=== PATIENT | male | born 1985 | race Caucasian/White ===

== ENCOUNTER 2017-12-11 21:05 | Emergency (ER) | payer OTHER ==
[~2017-12-11] VITALS: Ht 180.3 cm; Wt 108.9 kg
[2017-12-11 21:09] VITALS: BP 129/85
[2017-12-11] MEDS ORDERED: IBUPROFEN 800 MG TAB PO ONE (22:00)
[2017-12-11 22:44] VITALS: BP 129/85
== END 2017-12-11 22:44 | disposition home or self-care (01) ==
LOC: MED 21:05
DX: S20.20XA Contusion of thorax, unspecified, initial encounter (principal); S05.12XA Contusion of eyeball and orbital tissues, left eye, initial encounter; V13.4XXA Pedal cycle driver injured in collision with car, pick-up truck or van in traffic accident, initial encounter; Y93.89 Activity, other specified; Y92.410 Unspecified street and highway as the place of occurrence of the external cause; Y99.8 Other external cause status
CPT/HCPCS: 71101; 99284

== ENCOUNTER 2023-06-21 01:35 | Emergency (ER) | payer OTHER ==
[~2023-06-21] VITALS: Ht 180.3 cm; Wt 99.8 kg
[2023-06-21 01:40] VITALS: BP 123/66; PULSE 71; RESP 16; TEMP 97.2; O2SAT 97
[2023-06-21] MEDS ORDERED: LIDOCAINE 2% 1000 MG/50 ML VIAL INJ ONE (02:10)
[2023-06-21] MEDS ORDERED: BACITRACIN OINT 500 UNITS/GM PKT TP ONE (03:50)
[2023-06-21 04:11] VITALS: BP 123/66; PULSE 71; RESP 16; TEMP 97.2; O2SAT 97
== END 2023-06-21 04:11 | disposition home or self-care (01) ==
LOC: MED 01:35
DX: S61.411A Laceration without foreign body of right hand, initial encounter (principal); W26.8XXA Contact with other sharp object(s), not elsewhere classified, initial encounter; Y93.89 Activity, other specified; Y92.89 Other specified places as the place of occurrence of the external cause; Y99.8 Other external cause status
CPT/HCPCS: 12002; 90471; 90715; 99283; J2001

== ENCOUNTER 2023-06-26 19:37 | Emergency (ER) | payer OTHER ==
[2023-06-27] MEDS ORDERED: IBUP-2213 PO (09:21)
[2023-06-27] MEDS ORDERED: CEPH-588 PO (09:21)
== END 2023-06-26 20:20 | disposition left against medical advice (07) ==
LOC: MED 19:37
DX: Z53.21 Procedure and treatment not carried out due to patient leaving prior to being seen by health care provider (principal)

== ENCOUNTER 2023-06-27 06:49 | Emergency (ER) | payer OTHER ==
[~2023-06-27] VITALS: Ht 180.3 cm; Wt 99.8 kg
[2023-06-27 07:15] VITALS: BP 122/69; PULSE 68; RESP 18; TEMP 98.2; O2SAT 97
[2023-06-27] MEDS ORDERED: CEPH-588 PO (09:21)
[2023-06-27] MEDS ORDERED: IBUP-2213 PO (09:21)
[2023-06-27 10:03] VITALS: BP 122/69; PULSE 68; RESP 18; TEMP 98.2; O2SAT 97
== END 2023-06-27 10:03 | disposition home or self-care (01) ==
LOC: MED 06:49
DX: T81.49XA Infection following a procedure, other surgical site, initial encounter (principal)
CPT/HCPCS: 99283